=== PATIENT | female | born 1935 | race Caucasian/White ===

== ENCOUNTER 2016-12-21 16:42 | Observation (INO) | payer OTHER ==
[~2016-12-21] VITALS: Ht 160 cm; Wt 61.0 kg
[~2016-12-21 16:42] MED LIST: ALPR0.5T99 PO; ATEN1TAB73 PO; CETI10 PO; LISI-360 PO; NORV5TAB OR; OMEG600C2 PO; OMEP20CA5 PO; PRAV40TA PO; SERT-132 PO
[2016-12-21 16:45] VITALS: BP 208/85; PULSE 93; RESP 18; TEMP 97.9; O2SAT 95
--- NOTE | 2016-12-21 19:11 | PD ---
HPI Chief Complaint: Chest Pain Time Seen by Provider: 18:56 Travel History International Travel<30 days: No Contact w/Intl Traveler<30days: No Traveled to known affect area: No History of Present Illness HPI 81-year-old female complains of chest pain. Patient states that she had chest pain for the past 3 weeks. Patient states chest pain and tightness pressure localized left chest. Patient states that the patient usually lasts about a few seconds to a few minutes and resolved completely by itself. Patient denies any pain radiation. Patient denies palpitation nausea diaphoresis. Patient states the chest pain is not associate with exertion. Patient denies any coughing congestion fever chills. Patient has history of CAD status post CABG 4 in 2001. Patient has history hypertension, dyslipidemia. Patient denies history diabetes. Patient is a nonsmoker. Patient has family history of heart disease. Patient denies any chest pain now. Patient took aspirin 81 mg 3 before coming to the emergency room. PFSH Past Medical History Autoimmune Disease: No Blood Disorders: No Anxiety: Yes Heart Rhythm Problems: No Cardiac Catheterization: Yes (NO STENTS) Cardiovascular Problems: Yes High Cholesterol: Yes Chest Pain: Yes (CURRENT) Congestive Heart Failure: No Coronary Artery Disease: Yes Endocrine: No GERD: No Hepatitis: No Hiatal Hernia: Yes Hypertension: Yes Musculoskeletal: No Neurologic: No Respiratory: Yes Myocardial Infarction: No Ulcer: No Past Surgical History Abdominal Surgery: Yes (hernia) AICD: No Cardiac Surgery: Yes (CABG X 4 09/01) Coronary Artery Bypass Graft: Yes Ear Surgery: No Endocrine Surgery: No Eye Surgery: Yes (L AND R CATARACT REPAIR, R EYE DETACHED RETINA) Genitourinary Surgery: Yes (UTERUS TIED UP 2003) Gynecologic Surgery: Yes (HYST 2003) Hysterectomy: Yes Neurologic Surgery: No Oral Surgery: No Pacemaker: No Thoracic Surgery: No Other Surgery: Yes (DERM SURG TO SCALP) Social History Alcohol Use: No Tobacco Use: No Substance Use: No Allergies-Medications (Allergen,Severity, Reaction): Coded Allergies: Codeine (Verified Allergy, Severe, GI UPSET, 06/12/12) Sulfa (Verified Allergy, Severe, 12/21/16) Morphine (Verified Allergy, Mild, HALLUCINATIONS, 06/12/12) Reported Meds & Prescriptions Reported Meds & Active Scripts Active Reported Omeprazole 20 Mg Tab 20 Mg PO DAILY Pravastatin 40 Mg Tab 40 Mg PO HS Sertraline (Sertraline HCl) 50 Mg Tab 50 Mg PO DAILY Symbicort Inh (Budesonide/Formoterol Fumarate) 80-4.5 Mcg/Act Aero 1 Puff INH BID B-12 (Cyanocobalamin) 1,000 Mcg Cap 1,000 Mcg PO DAILY Losartan (Losartan Potassium) 50 Mg Tab 50 Mg PO DAILY Brimonidine Opth Drops (Brimonidine Tartrate) 0.2% Soln 1 Drop LEFT EYE BID Amlodipine (Amlodipine Besylate) 5 Mg Tab 5 Mg PO DAILY Mobic (Meloxicam) 7.5 Mg Tab 7.5 Mg PO HS Review of Systems General / Constitutional: No: Fever Eyes: No: Visual changes HENT: No: Headaches Cardiovascular: Positive: Chest Pain or Discomfort Respiratory: No: Shortness of Breath Gastrointestinal: No: Abdominal Pain Genitourinary: No: Dysuria Musculoskeletal: No: Pain Skin: No Rash Neurologic: No: Weakness Psychiatric: No: Depression Endocrine: No: Polydipsia Hematologic/Lymphatic: No: Easy Bruising Physical Exam Narrative GENERAL: Well-nourished, well-developed patient. SKIN: Warm and dry. HEAD: Normocephalic. EYES: No scleral icterus. No injection or drainage. NECK: Supple, trachea midline. No JVD or lymphadenopathy. CARDIOVASCULAR: Regular rate and rhythm without murmurs, gallops, or rubs. RESPIRATORY: Breath sounds equal bilaterally. No accessory muscle use. GASTROINTESTINAL: Abdomen soft, non-tender, nondistended. MUSCULOSKELETAL: No cyanosis, or edema. BACK: Nontender without obvious deformity. No CVA tenderness. Neurologic exam normal. Data Data Last Documented VS Vital Signs Date Time Temp Pulse Resp B/P Pulse Ox O2 Delivery O2 Flow Rate FiO2 12/21/16 16:45 97.9 93 18 208/85 95 Orders Complete Blood Count With Diff (12/21/16 18:56) Comprehensive Metabolic Panel (12/21/16 18:56) Creatine Kinase (Cpk) (12/21/16 18:56) Troponin I (12/21/16 18:56) Prothrombin Time / Inr (Pt) (12/21/16 18:56) Act Partial Throm Time (Ptt) (12/21/16 18:56) Chest, Single Ap (12/21/16 18:56) Iv Access Insert/Monitor (12/21/16 18:56) Ecg Monitoring (12/21/16 18:56) Oximetry (12/21/16 18:56) Labs Laboratory Tests Test 12/21/16 19:04 White Blood Count 6.1 TH/MM3 Red Blood Count 3.90 MIL/MM3 Hemoglobin 12.4 GM/DL Hematocrit 35.5 % Mean Corpuscular Volume 91.2 FL Mean Corpuscular Hemoglobin 31.8 PG Mean Corpuscular Hemoglobin 34.8 % Concent Red Cell Distribution Width 13.4 % Platelet Count 185 TH/MM3 Mean Platelet Volume 9.3 FL Neutrophils (%) (Auto) 65.0 % Lymphocytes (%) (Auto) 20.9 % Monocytes (%) (Auto) 9.1 % Eosinophils (%) (Auto) 3.1 % Basophils (%) (Auto) 1.9 % Neutrophils # (Auto) 4.0 TH/MM3 Lymphocytes # (Auto) 1.3 TH/MM3 Monocytes # (Auto) 0.6 TH/MM3 Eosinophils # (Auto) 0.2 TH/MM3 Basophils # (Auto) 0.1 TH/MM3 CBC Comment DIFF FINAL Differential Comment Prothrombin Time 10.6 SEC Prothromb Time International 1.0 RATIO Ratio Activated Partial 25.3 SEC Thromboplast Time Sodium Level 136 MEQ/L Potassium Level 4.2 MEQ/L Chloride Level 100 MEQ/L Carbon Dioxide Level 28.7 MEQ/L Anion Gap 7 MEQ/L Blood Urea Nitrogen 20 MG/DL Creatinine 1.27 MG/DL Estimat Glomerular Filtration 40 ML/MIN Rate Random Glucose 90 MG/DL Calcium Level 9.4 MG/DL Total Bilirubin 0.4 MG/DL Aspartate Amino Transf 18 U/L (AST/SGOT) Alanine Aminotransferase 18 U/L (ALT/SGPT) Alkaline Phosphatase 74 U/L Total Creatine Kinase 110 U/L Troponin I LESS THAN 0.02 NG/ML Total Protein 7.7 GM/DL Albumin 4.0 GM/DL [facility] Medical Decision Making Medical Screen Exam Complete: Yes Emergency Medical Condition: Yes Interpretation(s) 19:11 PM. EKG shows sinus rhythm with nonspecific ST-T wave change. 2006 p.m. Last Impressions Chest X-Ray 12/21/16 2036 Signed Impressions: Service Date/Time: November 19:17 - CONCLUSION: 1. Postoperative CABG. No focal consolidation or effusion. Larry Tripathi MD 2005 p.m. CBC within normal limit. BUN 20. Creatinine 1.27. Cardiac enzymes are normal. Differential Diagnosis Differential diagnosis including musculoskeletal, angina, DE, PE, pneumothorax. Narrative Course 81-year-old female with intermittent right-sided chest pain. History of CAD status post CABG. I spoke with Dr. Holt, covering for Dr. Page. Advised medical admission with consultation to Dr. Page in a.m. Diagnosis Primary Impression: Chest pain Qualified Code: R07.9 - Chest pain, unspecified type Duke Zhou MD Dec 21, 2016 19:11 Duke Zhou MD Dec 21, 2016 19:11
[2016-12-21 19:31] LABS: BASOPHIL # 0.1 TH/MM3 (0-0.2); BASOPHIL % 1.9 % (0.0-2.0); EOSINOPHIL # 0.2 TH/MM3 (0-0.4); EOSINOPHIL % 3.1 % (0.0-4.0); HEMATOCRIT 35.5 % (35.0-46.0); HEMO FLAGS DIFF FINAL; LYMPH % 20.9 % (9.0-44.0); LYMPHOCYTE # 1.3 TH/MM3 (1.0-4.8); MEAN CELL VOLUME 91.2 FL (80.0-100.0); MEAN CORPUSCULAR HEMOGLOBIN 31.8 PG (27.0-34.0); MEAN CORPUSCULAR HGB CONC 34.8 % (32.0-36.0); MONO % 9.1 % (0.0-8.0); PLATELET COUNT 185 TH/MM3 (150-450); RED CELL DISTRIBUTION WIDTH 13.4 % (11.6-17.2); WHITE BLOOD COUNT 6.1 TH/MM3 (4.0-11.0)
[2016-12-21 19:36] LABS: APTT (PATIENT) 25.3 SEC (24.3-30.1); PROTHROMBIN TIME - PATIENT 10.6 SEC (9.8-11.6)
[2016-12-21 19:47] LABS: ANION GAP 7 MEQ/L (5-15); AST (GOT) 18 U/L (15-37); BICARBONATE 28.7 MEQ/L (21.0-32.0); BLOOD UREA NITROGEN 20 MG/DL (7-18); CHLORIDE 100 MEQ/L (98-107); GLOMERULAR FILTRATION RATE 40 ML/MIN (>89); POTASSIUM 4.2 MEQ/L (3.5-5.1); SODIUM (NA) 136 MEQ/L (136-145)
[2016-12-21] MEDS ORDERED: LORA-373 PO (19:48)
[2016-12-21] MEDS ORDERED: LOSA50TA PO (19:48)
[2016-12-21] MEDS ORDERED: BRIM0.2S4 LEFT EYE (19:48)
[2016-12-21] MEDS ORDERED: MOBI7.5T PO (19:48)
[2016-12-21] MEDS ORDERED: AMLO5TAB2 PO (19:48)
[2016-12-21 19:51] LABS: ALKALINE PHOSPHATASE 74 U/L (45-117); ALT (GPT) 18 U/L (10-53); CREATINE KINASE 110 U/L (26-192); TOTAL BILIRUBIN ADULT 0.4 MG/DL (0.2-1.0)
--- NOTE | 2016-12-21 19:54 | RADRPT ---
EXAM DATE/TIME: 12/21/2016 19:17 [place] COMPARISON: No previous studies available for comparison. INDICATIONS : Chest pain. MEDICAL HISTORY : Coronary artery disease. SURGICAL HISTORY : CABG. ENCOUNTER: Initial ACUITY: 1 day PAIN SCORE: 4/10 LOCATION: Left chest FINDINGS: A single view of the chest demonstrates the lungs to be symmetrically aerated without evidence of mas s, infiltrate or effusion. The cardiomediastinal contours are unremarkable with postoperative change s of CABG. Osseous structures are intact. CONCLUSION: 1. Postoperative CABG. No focal consolidation or effusion. Larry Tripathi MD on December 21, 2016 at 19:52 Board Certified Radiologist. This report was verified electronically.
[2016-12-21] MEDS ORDERED: CYAN100017 PO (20:00)
[2016-12-21] MEDS ORDERED: SERT-132 PO (20:00)
[2016-12-21] MEDS ORDERED: SYMB80AE INH (20:00)
[2016-12-21] MEDS ORDERED: OMEP20TA PO (20:00)
[2016-12-21] MEDS ORDERED: PRAV40TA2 PO (20:00)
[2016-12-21 22:17] VITALS: BP 182/79; PULSE 89; RESP 16; O2SAT 98
[2016-12-21] MEDS ORDERED: NITROGLYCERIN 0.4 MG SL 25 TABS/BTL SL PRN (22:30)
[2016-12-21] MEDS ORDERED: SODIUM CHLORIDE 0.9% FLUSH 10 ML FLUSH IV FLUSH PRN (22:30)
[2016-12-21] MEDS ORDERED: ACETAMINOPHEN 500 MG CPLT PO PRN (22:30)
[2016-12-21] MEDS ORDERED: PRAVASTATIN SOD 40 MG TAB PO SCH (22:45)
[2016-12-21 23:44] VITALS: BP 177/70; PULSE 86; RESP 16; O2SAT 97
[2016-12-22] VITALS (8 sets, daily range): BP systolic 115–187; BP diastolic 58–79; PULSE 70–84; RESP 14–20; TEMP 97.6–98.4; O2SAT 95–98
--- NOTE | 2016-12-22 01:07 | HHI.HP ---
HPI Service [facility] Primary Care Physician Sourav Bruno MD Admission Diagnosis chest pain Diagnoses: (1) Chest pain (2) Hypertension Chief Complaint: Chest pain Travel History International Travel<30 Days: No Contact w/Intl Traveler <30 Da: No Traveled to Known Affected Are: No History of Present Illness Ms. Power is an 81 year-old female patient of Dr. Page with a history of coronary artery disease status post CABG x 4 vessels in 1991, hyperlipidemia, hypertension, hiatal hernia, and anxiety who presented to the emergency room on 12/21/2016 complaining of left-sided chest pain for 3 weeks. The patient is seen in the CDU. She reports intermittently occurring left chest "cramp" over the past 3 weeks. The symptoms are not accompanied by diaphoresis, shortness of breath, nausea, or vomiting and are not exertional. The pain is described as feeling like a "charley horse" in the chest. She is also complaining of bilateral calf cramps. She denies any recent travel. She is not a smoker. She states that she does not have any nitroglycerin to take as needed at home. She denies any history of myocardial infarction or stent but reports CABG in 1991. She denies any history of congestive heart failure, irregular heart rhythm likely A. fib, lipid her kidney problems, seizures, thyroid disease, cancers, or problems with blood clots such as: DVT, PE, CVA. Review of Systems Except as stated in HPI: all other systems reviewed are Neg Past Family Social History Past Medical History Coronary artery disease status post CABG 4 vessels Hyperlipidemia Hypertension Hiatal hernia Anxiety Gastroesophageal reflux disease COPD . Past Surgical History CABG 4 vessels in 1991 Bilateral cataract repair Repair of right detached retina Right inguinal hernia repair Hysterectomy . Reported Medications Reported Meds & Active Scripts Active Reported Omeprazole 20 Mg Tab 20 Mg PO DAILY Pravastatin 40 Mg Tab 40 Mg PO HS Sertraline (Sertraline HCl) 50 Mg Tab 50 Mg PO DAILY Symbicort Inh (Budesonide/Formoterol Fumarate) 80-4.5 Mcg/Act Aero 1 Puff INH BID B-12 (Cyanocobalamin) 1,000 Mcg Cap 1,000 Mcg PO DAILY Losartan (Losartan Potassium) 50 Mg Tab 50 Mg PO DAILY Brimonidine Opth Drops (Brimonidine Tartrate) 0.2% Soln 1 Drop LEFT EYE BID Amlodipine (Amlodipine Besylate) 5 Mg Tab 5 Mg PO DAILY Mobic (Meloxicam) 7.5 Mg Tab 7.5 Mg PO HS . Allergies: Coded Allergies: Codeine (Verified Allergy, Severe, GI UPSET, 06/12/12) Sulfa (Verified Allergy, Severe, 12/21/16) Morphine (Verified Allergy, Mild, HALLUCINATIONS, 06/12/12) Active Ordered Medications Current Medications Sodium Chloride (NS Flush) 2 ml BID IV FLUSH ; Start 12/22/16 at 09:00 Sodium Chloride (NS Flush) 2 ml UNSCH PRN IV FLUSH FLUSH AFTER USING IV ACCESS ; Start 12/21/16 at 22:30 Nitroglycerin (Nitrostat Sl) 0.4 mg Q5M PRN SL ANGINA; Start 12/21/16 at 22:30 Acetaminophen (Tylenol) 500 mg Q4H PRN PO HEADACHE; Start 12/21/16 at 22:30 Amlodipine Besylate (Norvasc) 5 mg DAILY PO ; Start 12/22/16 at 09:00 Brimonidine Tartrate (Alphagan 0.2% Opth Soln) 1 drop BID LEFT EYE ; Start 12/22 at 09:00 Budesonide/ Formoterol Fumarate (Symbicort 80-4.5 Mcg Inh) 1 puff BID INH ; Start 12/22/16 at 09:00 Losartan Potassium (Cozaar) 50 mg DAILY PO ; Start 12/22/16 at 09:00 Pravastatin Sodium (Pravachol) 40 mg HS PO Last administered on 12/21/16t 23:05 ; Start 12/21/16 at 22:45 Sertraline HCl (Zoloft) 50 mg DAILY PO ; Start 12/22/16 at 09:00 Pantoprazole Sodium (Protonix) 40 mg DAILY PO ; Start 12/22/16 at 09:00 Heparin Sodium (Porcine) (Heparin Inj) 5,000 units Q12HR SQ ; Start 12/22/16 at 09:00 . Family History Father may have had coronary artery disease and lived into his mid 70s Mother lived into her mid 70s; heart problems . Social History Tobacco: Smoked 25 years ago and prior to that smoked about a pack a day for 10 years Alcohol: Denies Illicit Drugs: Denies . Physical Exam Vital Signs Vital Signs Date Time Temp Pulse Resp B/P Pulse Ox O2 Delivery O2 Flow Rate FiO2 12/21/16 23:44 86 16 177/70 97 Room Air 12/21/16 22:17 89 16 182/79 98 Room Air 12/21/16 16:45 97.9 93 18 208/85 95 Physical Exam GENERAL: This is an elderly female patient, in no apparent distress. SKIN: No rashes, ecchymoses or lesions. Cool and dry. HEAD: Atraumatic. Normocephalic. EYES: No scleral icterus. No injection or drainage. ENT: Nose without bleeding, purulent drainage. NECK: Trachea midline. No JVD or lymphadenopathy. CARDIOVASCULAR: Regular rate and rhythm without murmurs, gallops, or rubs. RESPIRATORY: Clear to auscultation. Breath sounds equal bilaterally. No wheezes , rales, or rhonchi. GASTROINTESTINAL: Abdomen soft, non-tender, nondistended. No guarding. MUSCULOSKELETAL: Extremities without clubbing, cyanosis, or edema. No calf tenderness. NEUROLOGICAL: Awake and alert. Motor and sensory grossly within normal limits. Normal speech. . . Laboratory Laboratory Tests Test 12/21/16 19:04 White Blood Count 6.1 Red Blood Count 3.90 Hemoglobin 12.4 Hematocrit 35.5 Mean Corpuscular Volume 91.2 Mean Corpuscular Hemoglobin 31.8 Mean Corpuscular Hemoglobin 34.8 Concent Red Cell Distribution Width 13.4 Platelet Count 185 Mean Platelet Volume 9.3 Neutrophils (%) (Auto) 65.0 Lymphocytes (%) (Auto) 20.9 Monocytes (%) (Auto) 9.1 Eosinophils (%) (Auto) 3.1 Basophils (%) (Auto) 1.9 Neutrophils # (Auto) 4.0 Lymphocytes # (Auto) 1.3 Monocytes # (Auto) 0.6 Eosinophils # (Auto) 0.2 Basophils # (Auto) 0.1 CBC Comment DIFF FINAL Differential Comment Prothrombin Time 10.6 Prothromb Time International 1.0 Ratio Activated Partial 25.3 Thromboplast Time Sodium Level 136 Potassium Level 4.2 Chloride Level 100 Carbon Dioxide Level 28.7 Anion Gap 7 Blood Urea Nitrogen 20 Creatinine 1.27 Estimat Glomerular Filtration 40 Rate Random Glucose 90 Calcium Level 9.4 Total Bilirubin 0.4 Aspartate Amino Transf 18 (AST/SGOT) Alanine Aminotransferase 18 (ALT/SGPT) Alkaline Phosphatase 74 Total Creatine Kinase 110 Troponin I LESS THAN 0.02 Total Protein 7.7 Albumin 4.0 Result Diagram: 12/21/16190312/21/16 190 Imaging Last Impressions Chest X-Ray 12/21/16 1856 Signed Impressions: Service Date/Time: , December 21, 2016 19:17 - CONCLUSION: 1. Postoperative CABG. No focal consolidation or effusion. Larry Tripathi MD . Assessment and Plan Problem List: (1) Chest pain ICD Code: R07.9 Status: Acute (2) Hypertension ICD Code: I10 Status: Chronic Assessment and Plan Ms. Power is an 81 year-old female patient of Dr. Page with a history of coronary artery disease status post CABG x 4 vessels in 1991, hyperlipidemia, hypertension, hiatal hernia, and anxiety who presented to the emergency room on 12/21/2016 complaining of left-sided chest pain for 3 weeks. Chest pain - Serial cardiac enzymes and EKGs to rule out ACS - Consult Dr. Page - Nitroglycerin 0.4 mg sublingual every 5 minutes when necessary chest pain - Protonix 40 mg p.o. daily Hypertension - BPs elevated in ER 182/79 most recent - Restart home bp medications - Monitor trends in bps and adjust treatment as needed DVT prophylaxis - Heparin 5000 units subq q12h Written by Tori Augustine, acting as scribe for Dr. Stubbs on 12/22/16 at 01:06. .All or portions of this note were transcribed by scribe [Tori Augustine]. I, Dr. Americo Stubbs personally performed the history, physical exam, and medical decision making; and confirmed the accuracy of the information in the transcribed note. Authenticated by Dr. Americo Stubbs on 12/22/16 at 01:06. Discussed Condition With ER physician, patient, and RN Problem Qualifiers (1) Chest pain: Qualified Code: R07.9 - Chest pain, unspecified type (2) Hypertension: Qualified Code: I10 - Essential hypertension Tori Augustine Dec 22, 2016 01:07 Americo Stubbs MD Dec 22, 2016 09:12
[2016-12-22 02:15] LABS: CREATINE KINASE 91 U/L (26-192)
[2016-12-22 08:35] LABS: AUTOMATED NEUTROPHIL # 2.3 TH/MM3 (1.8-7.7); BASOPHIL % 0.3 % (0.0-2.0); EOSINOPHIL # 0.2 TH/MM3 (0-0.4); EOSINOPHIL % 6.2 % (0.0-4.0); HEMATOCRIT 33.5 % (35.0-46.0); HEMO FLAGS DIFF FINAL; LYMPH % 24.7 % (9.0-44.0); MEAN CELL VOLUME 91.6 FL (80.0-100.0); MEAN CORPUSCULAR HEMOGLOBIN 30.8 PG (27.0-34.0); MEAN CORPUSCULAR HGB CONC 33.6 % (32.0-36.0); NEUT % 57.8 % (16.0-70.0); PLATELET COUNT 173 TH/MM3 (150-450); RED BLOOD COUNT 3.65 MIL/MM3 (4.00-5.30); RED CELL DISTRIBUTION WIDTH 13.3 % (11.6-17.2)
[2016-12-22 08:43] LABS: ANION GAP 7 MEQ/L (5-15); BICARBONATE 26.1 MEQ/L (21.0-32.0); BLOOD UREA NITROGEN 18 MG/DL (7-18); CHLORIDE 105 MEQ/L (98-107); GLOMERULAR FILTRATION RATE 55 ML/MIN (>89); POTASSIUM 3.9 MEQ/L (3.5-5.1); SODIUM (NA) 138 MEQ/L (136-145)
[2016-12-22 08:46] LABS: CREATINE KINASE 110 U/L (26-192)
[2016-12-22] MEDS ORDERED: BUDESONIDE-FORMOTEROL 80/4.5 MCG INHALER INH SCH (09:00)
[2016-12-22] MEDS ORDERED: SODIUM CHLORIDE 0.9% FLUSH 10 ML FLUSH IV FLUSH SCH (09:00)
[2016-12-22] MEDS ORDERED: amLODIPine BESYLATE 5 MG TAB PO SCH (09:00)
[2016-12-22] MEDS ORDERED: SERTRALINE HCL 50 MG TAB PO SCH (09:00)
[2016-12-22] MEDS ORDERED: PANTOPRAZOLE SOD 40 MG DELAYED RELEASE TAB PO SCH (09:00)
[2016-12-22] MEDS ORDERED: BRIMONIDINE TARTRATE 0.2% OPHT SOLN 5 ML BTL LEFT EYE SCH (09:00)
[2016-12-22] MEDS ORDERED: LOSARTAN 50 MG TAB PO SCH (09:00)
[2016-12-22] MEDS ORDERED: HEPARIN SODIUM - SQ 10,000 UNITS/ML VIAL SQ SCH (09:00)
--- NOTE | 2016-12-22 10:04 | MB ---
cc: SUSI VILLARREAL MD DATE OF CONSULTATION 12/22/2016 REASON FOR CONSULTATION Chest pain HISTORY OF PRESENT ILLNESS Ms. Donna Power is an 81-year-old female who does have a history of hypertension, hyperlipidemia and CABG in August 2002 with a CARROLL to LAD, SVG to RCA, SVG to OM1 and SVG to OM2. The patient reports that she has had three weeks of discomfort. She is rather vague and describes whole left sided discomfort in the thorax and shoulder. On further discussion, however, she reports that it initiates in the shoulder when she is reaching back and lasts about five seconds. This creates such severe pain and a charley horse throughout all the muscles in her shoulder and chest that she is essentially doubled over in discomfort. She reports that the full episode will last about five seconds and is relieved by putting her left arm back in the resting position. She denies any chest pain on exertion. She is not taking anything for relief of pain because it does not last long. PAST MEDICAL HISTORY Significant for: 1. Hypertension 2. Hyperlipidemia 3. CAD with CABG 4. Anxiety 5. Hiatal hernia 6. Moderate COPD with an FVC 66% predicted. OUTPATIENT MEDICATIONS Include: 1. Omeprazole 2. Pravastatin 3. Sertraline 4. Symbicort 5. Losartan 6. Bromine ophthalmic 7. Amlodipine 8. Mobic REVIEW OF SYSTEMS Except as mentioned in the HPI, all 12 systems are negative. FAMILY HISTORY Noncontributory SOCIAL HISTORY The patient does not smoke. ALLERGIES CODEINE, SULFA AND MORPHINE PHYSICAL EXAM On physical examination, vital signs are 98.4, 73, 173/70. GENERAL: She is a well-appearing female who is in no apparent distress. NECK: Her neck is free from JVD. LUNGS: The lungs are bilaterally clear to auscultation. CARDIOVASCULAR: On examination, she has a normal S1 and S2. I did appreciate murmurs, rubs or gallops. ABDOMEN: Soft. EXTREMITIES: Free from edema. EKG shows normal sinus rhythm with nonspecific ST-T wave changes. LAB VALUES Show serial troponins of less than 0.02/less than 0.02. Her creatinine is elevated at 1.27 with a BUN of 20. IMPRESSION Chest wall pain - The patient certainly does have a history of prior CAD. Her description, however, is musculoskeletal. While I was unable to elicit this on exam with palpation, she essentially refused to rotate her left arm to reaching behind her back because it elicits such sharp pain. Additionally, the pain only lasts several seconds. This does not appear to be characteristic with CAD. Thus at this point, I do not think we need any further ischemia evaluation. CAD - The patient is seemingly stable at this point. Hypertension - The patient's blood pressure was in the 180's per our report. She reports it was up over 200 systolic. I am hesitant to increase her meds as she has had difficulties when taking the amlodipine and Losartan together. Furthermore, the severe pain could be exacerbating the blood pressure. At this point, I would like to give her the a.m. meds and if her blood pressure is reasonable, I believe it is reasonable for her to be discharged home. Disposition - It is reasonable for the patient to be discharged home if her blood pressure is stable after her a.m. meds. Susi Villarreal M.D. KRISTIN/HAYLEE /8:42 AM /9:53 AM
--- NOTE | 2016-12-22 10:22 | HHI.PR ---
Subjective Remarks Follow-up for chest pain. The patient reports no chest pains have resolved. She describes them as a cramping pain throughout her left chest and shoulder but also in her legs. The left shoulder pain is worse with certain movements, but relieved by resting her left arm by her side. The patient does admit to recent heavy lifting more than usual. She denies any shortness breath, nausea/ vomiting, or diaphoresis. She denies any other medical complaints as time. 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 Patient feels comfortable going home. She has a follow-up appointment scheduled with Dr. Page in December Objective Vitals Vital Signs Date Time Temp Pulse Resp B/P Pulse Ox O2 Delivery O2 Flow Rate FiO2 12/22/16 07:19 98.4 73 18 173/70 98 12/22/16 04:23 97.6 70 20 144/60 96 12/22/16 02:38 78 12/22/16 01:55 97.6 79 20 187/79 95 12/22/16 01:35 80 16 115/58 98 Room Air 12/22/16 00:40 84 14 132/60 96 Room Air 12/21/16 23:44 86 16 177/70 97 Room Air 12/21/16 22:17 89 16 182/79 98 Room Air 12/21/16 16:45 97.9 93 18 208/85 95 Result Diagram: 12/22/16 0820 12/22/16 0820 Imaging Last Impressions Chest X-Ray 12/21/16 1856 Signed Impressions: Service Date/Time: November 19:17 - CONCLUSION: 1. Postoperative CABG. No focal consolidation or effusion. Larry Tripathi MD Objective Remarks GENERAL: Well-nourished, well-developed pleasant elderly female patient in [facility]. SKIN: Warm and dry. No rash. HEENT: Normocephalic. Atraumatic. Pupils equal and round. No scleral icterus. No injection or drainage. Mucous membranes pink and moist. NECK: Supple. Trachea midline. CARDIOVASCULAR: Regular rate and rhythm. S1, S2 noted. No murmur appreciated. RESPIRATORY: No accessory muscle use. Clear to auscultation. Breath sounds equal bilaterally. GASTROINTESTINAL: Abdomen soft, non-tender, nondistended. Normoactive bowel sounds x4. MUSCULOSKELETAL: No obvious deformities. Extremities without clubbing, cyanosis , or edema. NEUROLOGICAL: Awake and alert. No obvious cranial nerve deficits. Motor grossly within normal limits. 5/5 muscle strength in bilateral upper and lower extremities. Normal speech. PSYCHIATRIC: Appropriate mood and affect; insight and judgment normal. Medications and IVs Current Medications Medications (Trade) Dose Ordered Sig/Sandeep Route Start Time Stop Time Status Last Admin (NS Flush) 2 ml BID IV FLUSH 12/22/16 09:00 12/22/16 09:00 (NS Flush) 2 ml UNSCH PRN IV FLUSH 12/21/16 22:30 (Nitrostat Sl) 0.4 mg Q5M PRN SL 12/21/16 22:30 (Tylenol) 500 mg Q4H PRN PO 12/21/16 22:30 (Norvasc) 5 mg DAILY PO 12/22/16 09:00 12/22/16 09:34 (Alphagan 0.2% Opth Soln) 1 drop BID LEFT EYE 12/22/16 09:00 (Symbicort 80-4.5 Mcg Inh) 1 puff BID INH 12/22/16 09:00 (Cozaar) 50 mg DAILY PO 12/22/16 09:00 12/22/16 09:34 (Pravachol) 40 mg HS PO 12/21/16 22:45 12/21/16 23:05 (Zoloft) 50 mg DAILY PO 12/22/16 09:00 12/22/16 09:34 (Protonix) 40 mg DAILY PO 12/22/16 09:00 12/22/16 09:34 (Heparin Inj) 5,000 units Q12HR SQ 12/22/16 09:00 A/P Problem List: (1) Chest pain ICD Code: R07.9 Status: Acute (2) Hypertension ICD Code: I10 Status: Chronic Assessment and Plan Ms. Power is an 81 year-old female patient of Dr. Page with a history of CAD s/p CABG x 4 vessels in 1991, HTN, HLD, hiatal hernia, and anxiety who presented to the ED on 12/21/2016 complaining of left-sided cramping chest pain for 3 weeks. Atypical Chest pain - ACS ruled out with negative cardiac enzymes 3 and EKG without acute ischemic changes - Nitroglycerin prn - Protonix 40 mg p.o. daily - Consult Dr. Page, pain likely musculoskeletal, cleared for discharge - Outpatient follow-up with PCP for musculoskeletal pains. 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 DVT prophylaxis - Heparin 5000 units subq q12h Discussed with Dr. Patterson and Shirlene LEDEZMA. 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 Page Problem Qualifiers (1) Chest pain: Qualified Code: R07.9 - Chest pain, unspecified type (2) Hypertension: Qualified Code: I10 - Essential hypertension Mariel Macedo PA-C Dec 22, 2016 10:22 Jailene Patterson MD Dec 22, 2016 11:13
--- NOTE | 2016-12-22 12:24 | HHI.DCPOC ---
Discharge Care Plan Diagnosis: (1) Chest pain (2) Hypertension Goals to Promote Your Health * To prevent worsening of your condition and complications * To maintain your health at the optimal level Directions to Meet Your Goals Take your medications as prescribed Follow your dietary instruction Follow activity as directed Keep your appointments as scheduled Take your immunizations and boosters as scheduled If your symptoms worsen call your PCP, if no PCP go to Urgent Care Center or Emergency Room Smoking is Dangerous to Your Health. Avoid second hand smoke Call the 24-hour hour crisis hotline for domestic abuse at Mariel Macedo PA-C Dec 22, 2016 12:23 pm
--- NOTE | 2016-12-23 11:00 | EKG ---
Date Performed: 12/22/2016 Time Performed: 07:00:52 PTAGE: 81 years EKG: Sinus rhythm POSSIBLE LEFT ATRIAL ENLARGEMENT MINIMAL ST DEPRESSION BORDERLINE ECG PREVIOUS TRACING : 12/22/2016 01.28 DOCTOR: Julius Vázquez Interpretating Date/Time 12/23/2016 10:57:40
--- NOTE | 2016-12-23 11:06 | EKG ---
Date Performed: 12/22/2016 Time Performed: 01:28:40 PTAGE: 81 years EKG: ATRIAL FIBRILLATION MINIMAL ST DEPRESSION ABNORMAL RHYTHM ECG PREVIOUS TRACING : 12/21/2016 16.58 DOCTOR: Julius Vázquez Interpretating Date/Time 12/23/2016 11:03:08
--- NOTE | 2016-12-23 11:15 | EKG ---
Date Performed: 12/21/2016 Time Performed: 16:58:25 PTAGE: 81 years EKG: Sinus rhythm WITH SINUS ARRHYTHMIA MINIMAL ST DEPRESSION BORDERLINE ECG NO PREVIOUS TRACING DOCTOR: Julius Vázquez Interpretating Date/Time 12/23/2016 11:12:01
== END 2016-12-22 13:56 | disposition home or self-care (01) ==
LOC: NEPE 16:42 → NEDA 21:13 → NEPFCDU 12-22 01:52
PROVIDERS: ADMIT Hospitalist; ATTEND Hospitalist
DX: R07.89 Other chest pain (principal); I10 Essential (primary) hypertension; N17.9 Acute kidney failure, unspecified; I25.10 Atherosclerotic heart disease of native coronary artery without angina pectoris; E78.5 Hyperlipidemia, unspecified; F41.9 Anxiety disorder, unspecified; E78.00 Pure hypercholesterolemia, unspecified; K21.9 Gastro-esophageal reflux disease without esophagitis; J44.9 Chronic obstructive pulmonary disease, unspecified; Z88.5 Allergy status to narcotic agent; Z88.2 Allergy status to sulfonamides; Z87.891 Personal history of nicotine dependence; Z95.1 Presence of aortocoronary bypass graft; Z79.51 Long term (current) use of inhaled steroids
CPT/HCPCS: 71010; 80048; 80053; 82550; 83880; 84484; 85025; 85610; 85730; 93005; 99285; G0378

== ENCOUNTER 2018-06-06 02:16 | Observation (INO) ==
--- NOTE | 2018-06-06 02:46 | ED ---
HPI General Chief Complaint: Chest Pain Stated Complaint: chest pain Time Seen by Provider: 06/06/18 02:36 Source: patient Mode of arrival: ambulatory Limitations: no limitations History of Present Illness HPI narrative: 83-year-old female patient with history of previous coronary artery disease, hypertension, GERD, anxiety, presents to the ER today because she woke up about an hour prior to arrival with substernal chest discomfort that lasted about 10-15 minutes. She states that has since gone away. She states it does not hurt with movement. She denies any nausea, vomiting, fevers , or other symptoms. She states that she has had chest discomfort in the past but was worried because it was not going away. Complete Quality Measures for STEMI Alert Patients Related Data Home Medications Medication Instructions Recorded Confirmed aspirin 81 mg PO DAILY 06/06/18 06/06/18 Allergies Allergy/AdvReac Type Severity Reaction Status Date / Time codeine Allergy Severe GI UPSET Unverified 05/15/17 15:24 Sulfa (Sulfonamide Allergy Severe Unverified 05/15/17 15:24 Antibiotics) morphine Allergy Mild HALLUCINATI Unverified 05/15/17 15:24 ONS Review of Systems ROS: all other systems reviewed are negative FORMERLY [facility], [facility] Medical History Medical History Anxiety (Acute) GERD (gastroesophageal reflux disease) (Acute) Hypertension (Acute) Surgical History Surgical History History of quadruple bypass (Acute) Social History Social History Substance History: No History of Abuse Second Hand Smoke Exposure: No Smoking Status: Former smoker Tobacco Type: Cigarettes How Often Do You Have a Drink Containing Alcohol: Never Recent Travel in [place] within the Last 8 Weeks: No Recent Out of Country Travel within the Last 8 Weeks: No Immunization History Tetanus Immunization: Unsure Hx Influenza Vaccine This Season: Yes Exam Narrative Exam Narrative: GENERAL: Pleasant well-developed elderly white female patient currently in mild distress. Awake and oriented 3. SKIN: Focused skin assessment warm/dry. HEAD: Atraumatic. Normocephalic. EYES: Pupils equal and round. No scleral icterus. No injection or drainage. ENT: No nasal bleeding or discharge. Mucous membranes pink and moist. NECK: Trachea midline. No JVD. Supple. CARDIOVASCULAR: Regular rate and rhythm. No murmur appreciated. RESPIRATORY: No accessory muscle use. Clear to auscultation. Breath sounds equal bilaterally. GASTROINTESTINAL: Abdomen soft, non-tender, nondistended. Hepatic and splenic margins not palpable. MUSCULOSKELETAL: No obvious deformities. No clubbing. No cyanosis. No edema. NEUROLOGICAL: Awake and alert. No obvious cranial nerve deficits. Motor grossly within normal limits. Normal speech. PSYCHIATRIC: Appropriate mood and affect; insight and judgment normal. Course Initial Documented Vital Signs Temperature 98.1 F 06/06/18 02:18 Pulse Rate 84 06/06/18 02:18 Respiratory Rate 16 06/06/18 02:18 Blood Pressure 185/73 H 06/06/18 02:18 Pulse Oximetry 100 06/06/18 02:18 Last Documented Vital Signs Temperature 98.1 F 06/06/18 02:18 Pulse Rate 72 06/06/18 02:44 Respiratory Rate 21 06/06/18 02:44 Blood Pressure 190/84 H 06/06/18 02:44 Pulse Oximetry 97 06/06/18 02:44 Medical Decision Making MDM Narrative Medical decision making narrative: EKG does not show any ST changes. She does have frequent PACs. Cardiac enzymes are negative. Lab work was fairly unremarkable. Considering her age and previous cardiac disease, my plan would be to admit her for further evaluation in the chest pain center. Medical Screen Exam Complete: Yes Emergency Medical Condition: Yes Differential Diagnosis Differential Diagnosis: ACS versus costochondritis versus anxiety attack Lab Data Lab results reviewed: Yes I reviewed the patient's lab results. Result diagrams: 06/06/18 02:50 06/06/18 02:50 Lab Results 06/06/18 06/06/18 Range/Units 02:50 02:50 WBC 6.7 (4.0-11.0) th/mm3 RBC 3.57 L (4.00-5.30) mil/mm3 Hgb 12.0 (11.6-15.3) gm/dL Hct 33.4 L (35.0-46.0) % MCV 93.6 (80.0-100.0) fL MCH 33.7 (27.0-34.0) pg MCHC 35.9 (32.0-36.0) % RDW 14.4 (11.6-17.2) % Plt Count 197 (150-450) th/mm3 MPV 8.6 (7.0-11.0) fL Neut % (Auto) 71.4 H (16.0-70.0) % Lymph % (Auto) 15.7 (9.0-44.0) % [place] % (Auto) 7.5 (0.0-8.0) % Eos % (Auto) 4.2 H (0.0-4.0) % Baso % (Auto) 1.2 (0.0-2.0) % Neut # (Auto) 4.8 (1.8-7.7) th/mm3 Lymph # (Auto) 1.0 (1.0-4.8) th/mm3 [place] # (Auto) 0.5 (0.0-0.9) th/mm3 Eos # (Auto) 0.3 (0.0-0.4) th/mm3 Baso # (Auto) 0.1 (0.0-0.2) th/mm3 WBC Differential . Differential Comment Auto diff final Sodium 137 (136-145) meq/L Potassium 3.6 (3.5-5.1) meq/L Chloride 102 (98-107) meq/L Carbon Dioxide 28.9 (21.0-32.0) meq/L Anion Gap 6 (5-15) meq/L BUN 22 H (7-18) mg/dL Creatinine 1.03 H (0.50-1.00) mg/dL Estimated GFR 51 L (>89) mL/min Random Glucose 97 (74-106) mg/dL Calcium 9.1 (8.5-10.1) mg/dL Total Bilirubin 0.3 (0.2-1.0) mg/dL AST 15 (15-37) U/L ALT 16 (10-53) U/L Alkaline Phosphatase 85 (45-117) U/L Troponin I Less than 0.02 L (0.02-0.05) ng/mL Total Protein 7.7 (6.4-8.2) g/dL Albumin 3.8 (3.4-5.0) g/dL Imaging Data Attestation: I personally reviewed and interpreted this imaging study as follows : Radiologist's impression: Chest X-Ray 06/06/18 02:36 CONCLUSION: Stable chest x-ray. No acute cardiopulmonary abnormality is identified. ECG Data Attestation: I personally reviewed and interpreted this ECG as follows: Interpretation: EKG shows sinus rhythm with frequent PACs rate currently 70 bpm. No signs of acute ST elevations or depressions. Discharge Plan Discharge Disposition Patient Disposition: 30 Still Patient Discharge Condition Condition: Stable Discharge Details Anticipated Discharge Date: 06/06/18 Diagnosis: Atypical chest pain Physicians Team ED Provider: Felipa Hines Rxs /Orders / Referrals /Forms Prescriptions: No Action aspirin 81 mg Tablet,Chewable 81 mg PO DAILY RF: 0 Discharge Instructions Patient Printed Instructions: Chest Pain (ED) Status ED Status: With Doctor
[2018-06-06 03:14] LABS: Baso # (Auto) 0.1 th/mm3 (0.0-0.2); Baso % (Auto) 1.2 % (0.0-2.0); Eos # (Auto) 0.3 th/mm3 (0.0-0.4); Eos % (Auto) 4.2 % (0.0-4.0); Hematocrit 33.4 % (35.0-46.0); Lymph % (Auto) 15.7 % (9.0-44.0); Mean Corpuscular HGB Conc 35.9 % (32.0-36.0); Mean Corpuscular Hemoglobin 33.7 pg (27.0-34.0); Mean Corpuscular Volume 93.6 fL (80.0-100.0); Mean Platelet Volume 8.6 fL (7.0-11.0); Mono # (Auto) 0.5 th/mm3 (0.0-0.9); Mono % (Auto) 7.5 % (0.0-8.0); Neut # (Auto) 4.8 th/mm3 (1.8-7.7); Neut % (Auto) 71.4 % (16.0-70.0); Platelet Count 197 th/mm3 (150-450); Red Blood Count 3.57 mil/mm3 (4.00-5.30); Red Cell Distribution Width 14.4 % (11.6-17.2); White Blood Count 6.7 th/mm3 (4.0-11.0)
--- NOTE | 2018-06-06 03:29 | XR ---
EXAM DATE: 06/06/2018 3:08 AM EDT AGE/SEX: 83 years / Female INDICATIONS: Chest pain. CLINICAL DATA: This is the patient's initial encounter. Patient reports that signs and symptoms have been present for 3 days and indicates a pain score of 6/10. MEDICAL/SURGICAL HISTORY: . Coronary artery disease. CABG. COMPARISON: [facility] [place]ST SINGLE AP, 12/21/2016. . FINDINGS: Portable AP view of the chest demonstrates a normal-sized cardiac silhouette. Median sternotomy wires are present and clips related to prior CABG. EKG lines overlie the patient. No effusion, consolidati on, or pneumothorax is identified. The bones and soft tissues demonstrate no acute abnormality. CONCLUSION: Stable chest x-ray. No acute cardiopulmonary abnormality is identified. Electronically signed by: Vasyl Henning MD 06/06/2018 3:28 AM EDT
[2018-06-06 03:40] LABS: Alanine Aminotransferase 16 U/L (10-53); Albumin 3.8 g/dL (3.4-5.0); Anion Gap 6 meq/L (5-15); Aspartate Aminotransferase 15 U/L (15-37); Blood Urea Nitrogen 22 mg/dL (7-18); Calcium 9.1 mg/dL (8.5-10.1); Carbon Dioxide 28.9 meq/L (21.0-32.0); Chloride 102 meq/L (98-107); Glomerular Filtration Rate 51 mL/min (>89); Glucose,Random 97 mg/dL (74-106); Potassium 3.6 meq/L (3.5-5.1); Sodium 137 meq/L (136-145)
[2018-06-06 03:44] LABS: Alkaline Phosphatase 85 U/L (45-117); Total Protein 7.7 g/dL (6.4-8.2)
[2018-06-06 06:40] LABS: Creatine Kinase 120 U/L (26-192)
[2018-06-06] MEDS ORDERED: LOSARTAN 50 MG PO SCH (09:36)
[2018-06-06 09:58] LABS: Creatine Kinase 97 U/L (26-192)
[2018-06-06] MEDS ORDERED: amLODIPine 5 MG Tablet PO SCH (10:15)
[2018-06-06] MEDS ORDERED: Pantoprazole Sodium 20 MG DR Tablet PO SCH (10:15)
--- NOTE | 2018-06-06 10:17 | P.HPCA ---
History of Present Illness Primary Care Physician: Sourav Bruno Chief Complaint: Chest History of Present Illness: This is an 83-year-old female with history of CAD with a bypass, hypertension, and hyperlipidemia that presents to ED to be evaluated for chest discomfort. Patient states she had 2 days of intermittent chest discomfort lasting anywhere from 10-15 minutes. Nothing in particular would bring on the discomfort found nothing to worsen or improve it. Thought was indigestion however did not tear I any [id number] medications for indigestion. States last night was little more intense. Took 4 baby aspirin and came to the ED. Cannot really recall her symptoms that led to her bypass but does not recall creating chest discomfort. She also states the last 2 days she has felt tired. She thought that it may been her blood pressure medicine so she started breaking off pieces of her losartan would take a piece of it at a time. She continue taking her normal dose amlodipine. Currently denies chest discomfort. History of CAD with bypass. History also hypertension hyperlipidemia. There is family history of CAD. Review of Systems General: Patient denies fevers, chills, and recent travel. HEENT: Patient denies headache, sore throat, difficulty swallowing. Cardiovascular: Has the chest discomfort as mentioned above. Denies sensation of heart beating rapidly or irregularly. No syncope. Denies diaphoresis. Respiratory: Denies shortness of breath or inspirational chest discomfort. Denies coughing wheezing or hemoptysis. GI: Patient denies nausea, vomiting, diarrhea, abdominal pain, bloody stools. Musculoskeletal: Patient denies joint pain or edema. Denies calf pain or edema. Neurovascular: Patient denies numbness, tingling, weakness in extremities. Denies headache. Endocrine: Denies polyuria and polydipsia. Hematologic: Denies easy bruising. Skin: Denies rash or itching. PMFSH - History History Provided By: Patient - Medical History Medical History: Medical History (Last Reviewed 06/06/18 @ 02:45 by Felipa Hines MD) Anxiety GERD (gastroesophageal reflux disease) Hypertension - Surgical History Surgical History: Surgical History (Last Reviewed 06/06/18 @ 02:45 by Felipa Hines MD) History of quadruple bypass - Tobacco History Second Hand Smoke Exposure: No Tobacco Use In Past 30 Days: No Smoking Status: Former smoker Tobacco Type: Cigarettes - Alcohol History How Often Do You Have a Drink Containing Alcohol: Never - Substance Use History Substance History: No History of Abuse - Travel History Recent Travel in the [place] Within the Last 8 Weeks: No Recent Travel Out of the Country Within the Last 8 Weeks: No - Immunization History Tetanus Immunization: Unsure Hx Influenza Vaccine This Season: Yes Medications and Allergies Active Medications: Active Medications Amlodipine Besylate (Norvasc) 5 mg PO DAILY [facility] Last Admin: 06/06/18 10:10 Dose: 5 mg Pantoprazole Sodium (Protonix) 20 mg PO DAILY [facility] Pravastatin Sodium (Pravachol) 40 mg PO DAILY [facility] Last Admin: 06/06/18 10:10 Dose: 40 mg Sodium Chloride (Ns Flush) 2 ml IV.FLUSH UNSCH PRN PRN Reason: FLUSH AFTER USING IV ACCESS Sodium Chloride (Ns Flush) 2 ml IV.FLUSH BID [facility] Sodium Chloride (Ns Flush) 2 ml IV.FLUSH PRN PRN PRN Reason: FLUSH AFTER USING IV ACCESS Allergies Allergy/AdvReac Type Severity Reaction Status Date / Time codeine Allergy Severe GI UPSET Unverified 05/15/17 15:24 Sulfa (Sulfonamide Allergy Severe Unverified 05/15/17 15:24 Antibiotics) morphine Allergy Mild HALLUCINATI Unverified 05/15/17 15:24 ONS Home Medications Medication Instructions Recorded Confirmed Type amlodipine 5 mg PO DAILY 06/06/18 06/06/18 History aspirin 81 mg PO DAILY 06/06/18 06/06/18 History budesonide-formoterol [Symbicort] 2 puff INHALATION BID 06/06/18 06/06/18 History losartan 100 mg PO DAILY 06/06/18 06/06/18 History lovastatin 40 mg PO DAILY 06/06/18 06/06/18 History meloxicam 15 mg PO DAILY 06/06/18 06/06/18 History omeprazole 20 mg PO DAILY 06/06/18 06/06/18 History Exam Vital signs: Vital Signs 06/06/18 02:18 06/06/18 02:44 06/06/18 06:26 Temperature 98.1 F Pulse Rate 84 72 78 Respiratory Rate 16 21 20 Blood Pressure 185/73 H 190/84 H 203/79 H Pulse Oximetry 100 97 100 06/06/18 07:34 06/06/18 08:43 Temperature 97.9 F Pulse Rate 85 79 Respiratory Rate 18 18 Blood Pressure 169/84 H 147/67 H Pulse Oximetry 98 98 Intake & Output 06/05/18 06/06/18 06/06/18 18:59 06:59 18:59 Weight 68 kg Narrative: GENERAL: This is a well-nourished, well-developed patient, in no apparent distress. Patient speaks in clear complete sentences. Patient is pleasant. HEENT: Head is atraumatic and normocephalic. Neck is supple without lymphadenopathy and trachea is midline. No JVD or carotid bruits. CARDIOVASCULAR: Regular rate and rhythm without murmurs, gallops, or rubs. RESPIRATORY: Clear to auscultation. Breath sounds equal bilaterally. No wheezes , rales, or rhonchi. Chest wall is nontender. No use of accessory muscles. GASTROINTESTINAL: Abdomen is nontender, nondistended. Abdomen soft. No obvious pulsatile mass or bruit. No CVA tenderness. Strong femoral pulses bilaterally. Normal bowel sounds in all quadrants. MUSCULOSKELETAL: Patient is moving upper and lower extremities freely. No calf tenderness or edema, no Homans sign. Strong pulses in upper and lower extremities. NEUROLOGICAL: Patient is alert and oriented. Cranial nerves 2-12 are grossly intact. No focal deficits and speech is clear. SKIN: No rash and turgor is normal. Results 06/06/18 02:50 06/06/18 02:50 Cardiac Enzymes 06/06/18 06/06/18 06/06/18 Range/Units 02:50 05:50 08:50 AST 15 (15-37) U/L Troponin I Less than 0.02 L Less than 0.02 L Less than 0.02 L (0.02-0.05) ng/mL CBC 06/06/18 Range/Units 02:50 WBC 6.7 (4.0-11.0) th/mm3 RBC 3.57 L (4.00-5.30) mil/mm3 Hgb 12.0 (11.6-15.3) gm/dL Hct 33.4 L (35.0-46.0) % Plt Count 197 (150-450) th/mm3 Neut # (Auto) 4.8 (1.8-7.7) th/mm3 Lymph # (Auto) 1.0 (1.0-4.8) th/mm3 [place] # (Auto) 0.5 (0.0-0.9) th/mm3 Eos # (Auto) 0.3 (0.0-0.4) th/mm3 Baso # (Auto) 0.1 (0.0-0.2) th/mm3 Comprehensive Metabolic Panel 06/06/18 Range/Units 02:50 Sodium 137 (136-145) meq/L Potassium 3.6 (3.5-5.1) meq/L Chloride 102 (98-107) meq/L Carbon Dioxide 28.9 (21.0-32.0) meq/L BUN 22 H (7-18) mg/dL Creatinine 1.03 H (0.50-1.00) mg/dL Calcium 9.1 (8.5-10.1) mg/dL AST 15 (15-37) U/L ALT 16 (10-53) U/L Alkaline Phosphatase 85 (45-117) U/L Total Protein 7.7 (6.4-8.2) g/dL Albumin 3.8 (3.4-5.0) g/dL Intake and Output 06/05/18 06/06/18 06/06/18 22:59 06:59 14:59 Other: Weight 68 kg EKG interpretations - EKG EKG shows: sinus rhythm (EKGs are sinus rhythm with nonspecific lateral ST-T changes. PACs are present.) Caprini VTE Risk Assessment Caprini VTE Risk Assessment: Moderate/High Risk (score >= 2) Caprini Risk Assessment Model: Point Value = 1 Point Value = 2 Point Value = 3 Point Value = 5 Age 41-60 Minor surgery BMI > 25 kg/m2 Swollen legs Varicose veins or History of unexplained or recurrent spontaneous Oral contraceptives or hormone replacement Sepsis (< 1 month) Serious lung disease, including pneumonia (< 1 month) Abnormal pulmonary function Acute myocardial infarction Congestive heart failure (< 1 month) History of inflammatory bowel disease Medical patient at bed rest Age 61-74 Arthroscopic surgery Major open surgery (> 45 min) Laparoscopic surgery (> 45 min) Malignancy Confined to bed (> 72 hours) Immobilizing plaster cast Central venous access Age >= 75 History of VTE Family history of VTE Factor V Leiden Prothrombin [id number] Lupus anticoagulant Anticardiolipin antibodies Elevated serum homocysteine Heparin-induced thrombocytopenia Other congenital or acquired thrombophilia Stroke (< 1 month) Elective arthroplasty Hip, pelvis, or leg fracture Acute spinal cord injury (< 1 month) Prophylaxis Regimen: Total Risk Factor Score Risk Level Prophylaxis Regimen 0-1 Low Early ambulation 2 Moderate Order ONE of the following: *Sequential Compression Device (SCD) *Heparin 5000 units SQ BID 3-4 Higher Order ONE of the following medications: *Heparin 5000 units SQ TID *Enoxaparin/Lovenox 40 mg SQ daily (WT < 150 kg, CrCl > 30 mL/min) *Enoxaparin/Lovenox 30 mg SQ daily (WT < 150 kg, CrCl > 10-29 mL/min) *Enoxaparin/Lovenox 30 mg SQ BID (WT < 150 kg, CrCl > 30 mL/min) AND/OR *Sequential Compression Device (SCD) 5 or more Highest Order ONE of the following medications: *Heparin 5000 units SQ TID (Preferred with Epidurals) *Enoxaparin/Lovenox 40 mg SQ daily (WT < 150 kg, CrCl > 30 mL/min) *Enoxaparin/Lovenox 30 mg SQ daily (WT < 150 kg, CrCl > 10-29 mL/min) *Enoxaparin/Lovenox 30 mg SQ BID (WT < 150 kg, CrCl > 30 mL/min) AND *Sequential Compression Device (SCD) Assessment and Plan - Plan * Chest pain: Patient has had serial cardiac enzymes and EKGs for ruling out purposes. She has been seen by Dr. Page of cardiology in the chest pain center. She will undergo a Lexiscan. She will be discharged home if her stress test is nonischemic with instructions to follow up with Dr. Page and her PCP. * CAD with history of bypass: This will be reassessed with stress testing. She should follow up with Dr. Page. * Hypertension: Continue amlodipine. Really not sure of the dose of losartan that she has been taking however pharmacy has notified me that was shortness recalled. Will discuss further with Dr. Page. * Hyperlipidemia: Continue medication. Patient stable at this time. She is agreeable to this plan.
[2018-06-06] MEDS ORDERED: Regadenoson Inj 0.4 MG/5 ML Syringe IV.PUSH ONE (11:10)
--- NOTE | 2018-06-06 12:59 | NM ---
EXAM DATE: 06/06/2018 12:23 PM EDT AGE/SEX: 83 years / Female INDICATIONS:Angina. Coronary artery disease Mid chest pain for one day. CLINICAL DATA: This is the patient's initial encounter. Patient reports that signs and symptoms have been present for 1 day and indicates a pain score of 5/10. MEDICAL/SURGICAL HISTORY: Hypertension. Gastroesophageal reflux disease. CABG. COMPARISON: No prior exams available for comparison. No external comparison. DOSE: 8.3 mCi Tc 99m Myoview at rest 25.8 mCi [id number] at rest 0.4 mg Lexiscan STRESS SYMPTOMS: None. EJECTION FRACTION: >70 % TECHNIQUE: The patient underwent pharmacologic stress with infusion of prescribed dose. Continuous ECG tracing was monitored during stress. Gated SPECT imaging was performed after stress and conventi onal SPECT imaging was performed at rest. The examination was performed on a SPECT/CT scanner, both attenuation and non-corrected datasets were reviewed. FINDINGS: Distribution: The maximum perfused segment at stress is in the posterior basal wall. Perfusion Study: The pattern of perfusion at stress is within normal limits. Gated Study: There are intact wall motion and wall thickening without hypokinetic or dyskinetic segm ents. The ejection fraction is calculated at >70%. RISK CATEGORY: Low (<1% Annual Motality Rate) CONCLUSION: Negative examination. Electronically signed by: Vasyl Riley MD 06/06/2018 12:57 PM EDT
--- NOTE | 2018-06-06 17:21 | TR ---
Date Performed: 06/06/2018 Time Performed: 11:12:08 DOCTOR: Zakiya Page DRUG LIST: CLINICAL HISTORY: REASON FOR TEST: REASON FOR ENDING: OBSERVATION: CONCLUSION: Lexiscan stress test was performed under standard four minute protocol. Radionuclid e was injected one minute prior to ending the test. No electrocardiographic abormalities were present to suggest ischemia. Nuclear imaging and interpretation are pending. COMMENTS: no ischemia
--- NOTE | 2018-06-06 17:23 | ECG ---
Date Performed: 06/06/2018 Time Performed: 05:57:19 PTAGE: 83 years EKG: Sinus rhythm MODERATE ST DEPRESSION ABNORMAL ECG Since PREVIOUS TRACING , no significant change noted DOCTOR: Zakiya Page Interpretating Date/Time 06/06/2018 17:22:45
--- NOTE | 2018-06-06 17:24 | ECG ---
Date Performed: 06/06/2018 Time Performed: 02:39:26 PTAGE: 83 years EKG: ATRIAL FIBRILLATION MODERATE ST DEPRESSION ABNORMAL ECG Since PREVIOUS TRACING , no significant change noted PREVIOUS TRACIN12/22/2016 07.00 DOCTOR: Zakiya Page Interpretating Date/Time 06/06/2018 17:23:19
--- NOTE | 2018-06-06 23:45 | ECG ---
Date Performed: 06/06/2018 Time Performed: 09:02:25 PTAGE: 83 years EKG: Sinus rhythm WITH PACs NON-SPECIFIC ST/T WAVE CHANGES ABNORMAL RHYTHM ECG INTERPRETATION BASED ON A DEFAULT AGE O F 39 YEARS Compared to PREVIOUS TRACING , PACs now noted DOCTOR: Preston Holt Interpretating Date/Time 06/06/2018 23:44:45
== END 2018-06-06 15:08 | disposition home or self-care (01) ==
LOC: NEDA 02:16 → NEPE 02:16 → NEPGCP 08:10
PROVIDERS: ADMIT Internal Medicine Cardiovascular Disease; ATTEND Internal Medicine Cardiovascular Disease